=== PATIENT | female | born 1965 | race Caucasian/White ===

== ENCOUNTER 2019-03-12 08:25 | Emergency (ER) | payer MEDICAID ==
[~2019-03-12] VITALS: Ht 165.1 cm; Wt 83.7 kg
[~2019-03-12 08:25] MED LIST: LEVO137T24 PO; OXYC-658 PO
[2019-03-12 08:28] VITALS: BP 128/89
[2019-03-12] MEDS ORDERED: gentamicin 0.1% topical ointment 15gm TP SCH (09:25)
[2019-03-12] MEDS ORDERED: cephalexin 500mg capsule PO ONE (09:25)
[2019-03-12] MEDS ORDERED: TETanus/Pertussis (Acell)/Diphther VAC/PF (Tdap-Adult) 0.5ml syringe IMVAC ONE (09:25)
[2019-03-12] MEDS ORDERED: CEPH500C5 PO (10:24)
== END 2019-03-12 10:47 | disposition home or self-care (01) ==
LOC: ER 08:25
DX: L03.114 Cellulitis of left upper limb (principal); F17.200 Nicotine dependence, unspecified, uncomplicated; F12.90 Cannabis use, unspecified, uncomplicated; F15.90 Other stimulant use, unspecified, uncomplicated; F11.90 Opioid use, unspecified, uncomplicated; F10.99 Alcohol use, unspecified with unspecified alcohol-induced disorder; Z98.890 Other specified postprocedural states; Z88.5 Allergy status to narcotic agent; Z79.899 Other long term (current) drug therapy; Y90.9 Presence of alcohol in blood, level not specified
CPT/HCPCS: 73120; 90471; 99283